=== PATIENT | female | born 1970 | race American Indian/Alaskan Native ===

== ENCOUNTER 2017-01-23 15:24 | Emergency (ER) | payer SELFPAY ==
[2017-01-23 16:04] LABS: Basophils % (Auto) 0.5 % (0.0-1.8); Eosinophils % (Auto) 8.3 % (0.0-4.3); Hematocrit 35.3 % (30.3-42.9); Hemoglobin 10.9 gm/dl (10.1-14.3); Mean Corpuscular HGB Conc 31 % (30-34); Mean Corpuscular Volume 78 fl (79-97); Platelet Count 207 K/mm3 (140-440); Red Blood Count 4.52 M/mm3 (3.65-5.03); Red Cell Distribution Width 18.2 % (13.2-15.2); White Blood Count 8.6 K/mm3 (4.5-11.0)
[2017-01-23 16:10] LABS: Mean Corpuscular Hemoglobin 24 pg (28-32)
[2017-01-23 16:19] LABS: Anion Gap 19 mmol/L; BUN/Creatinine Ratio 7.14; Blood Urea Nitrogen 5 mg/dL (7-17); Calcium 9.1 mg/dL (8.4-10.2); Carbon Dioxide 27 mmol/L (22-30); Chloride 98.8 mmol/L (98-107); Glucose 123 mg/dL (65-100); Potassium 3.7 mmol/L (3.6-5.0); Sodium 141 mmol/L (137-145)
[2017-01-23] MEDS ORDERED: DELTASONE PO ONE (17:30)
[2017-01-23] MEDS ORDERED: TORADOL IM ONE (17:31)
[2017-01-23] MEDS ORDERED: PERCOCET 5/325 PO ONE (17:32)
[2017-01-23] MEDS: PROVENTIL IH ONE ×2 (18:04)
--- NOTE | 2017-01-23 18:40 | Emergency Department Report ---
ED Chest Pain HPI - General Chief Complaint: Chest Pain Stated Complaint: SHARP CHEST PAIN/UPPER LFT/R BELOW SHOULDER Time Seen by Provider: 01/23/17 17:29 Source: patient Mode of arrival: Ambulatory Limitations: No Limitations - History of Present Illness Initial Comments: 46-year-old female with no past medical history presenting to the emergency room complaining of chest pain. Onset started last night. Patient states she' s been coughing for several days. She has been coughing up green phlegm. She has dull ache that is worse when she coughs, and improves when she rests. Pain is located last upper sternal area near her shoulder. Nonradiating. Not accompanied with: Hemoptysis, shortness of breath, wheeze, pain rating towards the back, unilateral lower extremity swelling, abdominal pain, nausea/vomiting/ diarrhea. She is one pack per day smoker. MD Complaint: chest pain -: Gradual, days(s) (1 ) Onset: during rest Pain Location: left chest Pain Radiation: none Severity: moderate Severity scale (0 -10): 3 Quality: aching Improves With: nothing Worsens With: other (cough ) Context: recent illness Other Symptoms: cough. denies: fever, syncope, rash, acid taste in mouth, leg swelling, palpitations, burping Treatments Prior to Arrival: none - Related Data On Oral Contraceptives: No Previous Rx's Medication Instructions Recorded Last Taken Type ALBUTEROL Inhaler [ProAir HFA 2 puff IH QID PRN #1 inhalation 01/23/17 Unknown Rx Inhaler] Aspirin [Aspirin BABY CHEW TAB] 81 mg PO QDAY #30 tab.chew 01/23/17 Unknown Rx Ibuprofen [Motrin 800 MG tab] 800 mg PO Q8HR PRN #30 tablet 01/23/17 Unknown Rx predniSONE [Deltasone] 60 mg PO QDAY #12 tab 01/23/17 Unknown Rx Allergies Allergy/AdvReac Type Severity Reaction Status Date / Time No Known Allergies Allergy Unverified 01/23/17 15:30 Heart Score - HEART Score History: Slightly suspicious EKG: Non-specific Age: 45-65 Risk factors: 1-2 risk factors Troponin: < normal limit HEART Score: 3 - Critical Actions Critical Actions: 0-3 pts:0.9-1.7%risk of adverse cardiac event.Candidate for discharge ED Review of Systems ROS: Stated complaint: SHARP CHEST PAIN/UPPER LFT/R BELOW SHOULDER Other details as noted in HPI Constitutional: denies: chills, fever Eyes: denies: eye pain, eye discharge, vision change ENT: denies: ear pain, throat pain Respiratory: cough. denies: orthopnea, shortness of breath, SOB with exertion, SOB at rest, wheezing Cardiovascular: chest pain. denies: palpitations, dyspnea on exertion, orthopnea, edema, syncope, paroxysmal nocturnal dyspnea Endocrine: no symptoms reported Gastrointestinal: denies: abdominal pain, nausea, diarrhea Genitourinary: denies: urgency, dysuria, discharge Musculoskeletal: denies: back pain, joint swelling, arthralgia Skin: denies: rash, lesions Neurological: denies: headache, weakness, paresthesias Psychiatric: denies: anxiety, depression Hematological/Lymphatic: denies: easy bleeding, easy bruising ED Past Medical Hx - Past Medical History Previous Medical History?: No - Surgical History Past Surgical History?: Yes Additional Surgical History: tubaligation - Social History Smoking Status: Current Every Day Smoker Substance Use Type: Alcohol, Non Opiate Pain - Medications Home Medications: Home Medications Medication Instructions Recorded Confirmed Last Taken Type ALBUTEROL Inhaler [ProAir HFA 2 puff IH QID PRN #1 inhalation 01/23/17 Unknown Rx Inhaler] Aspirin [Aspirin BABY CHEW TAB] 81 mg PO QDAY #30 tab.chew 01/23/17 Unknown Rx Ibuprofen [Motrin 800 MG tab] 800 mg PO Q8HR PRN #30 tablet 01/23/17 Unknown Rx predniSONE [Deltasone] 60 mg PO QDAY #12 tab 01/23/17 Unknown Rx ED Physical Exam - General Limitations: No Limitations General appearance: alert, in no apparent distress - Head Head exam: Present: atraumatic, normocephalic - Eye Eye exam: Present: normal appearance - ENT ENT exam: Present: mucous membranes moist - Neck Neck exam: Present: normal inspection - Respiratory Respiratory exam: Present: normal lung sounds bilaterally, wheezes (expiratory wheezing in all lobes ), chest wall tenderness (left chest wall ). Absent: respiratory distress, rales, rhonchi - Cardiovascular Cardiovascular Exam: Present: regular rate, normal rhythm, other (reproducible chest wall tenderness, left upper chest wall ). Absent: systolic murmur, diastolic murmur, rubs, gallop - GI/Abdominal GI/Abdominal exam: Present: soft, normal bowel sounds. Absent: distended, tenderness, guarding - External exam: Present: other (no evidence of DVT ). Absent: erythema, swelling - Extremities Exam Extremities exam: Present: normal inspection - Back Exam Back exam: Present: normal inspection - Neurological Exam Neurological exam: Present: alert, oriented X3 - Psychiatric Psychiatric exam: Present: normal affect, normal mood - Skin Skin exam: Present: warm, dry, intact, normal color. Absent: rash ED Course Vital Signs 01/23/17 01/23/17 01/23/17 15:31 16:29 17:30 Temperature 98.7 F Pulse Rate 88 77 Pulse Rate [ Bilateral] Pulse Rate [ Throughout] Respiratory 18 20 18 Rate Respiratory Rate [Bilateral ] Respiratory Rate [ Throughout] Blood Pressure 139/83 Blood Pressure 119/72 [Left] O2 Sat by Pulse 100 100 99 Oximetry 01/23/17 01/23/17 18:06 19:30 Temperature Pulse Rate 86 Pulse Rate [ 81 Bilateral] Pulse Rate [ 92 H Throughout] Respiratory 20 20 Rate Respiratory 18 Rate [Bilateral ] Respiratory 18 Rate [ Throughout] Blood Pressure Blood Pressure 143/97 [Left] O2 Sat by Pulse 98 Oximetry - Reevaluation(s) Reevaluation #1: 01/23/17 18:49 Resting comfortably Reevaluation #2: 01/23/17 20:12 Patient agrees she is stable discharge home. OKSANA score - Oksana Score Age > 65: (0) No Aspirin use within the Past 7 Days: (0) No 3 or more CAD Risk Factors: (0) No 2 or more Angina events in past 24 hrs: (0) No Known CAD with more than 50% Stenosis: (0) No Elevated Cardiac Markers: (0) No ST Deviation Greater than 0.5mm: (0) No OKSANA Score: 0 ED Medical Decision Making - Lab Data Result diagrams: 01/23/17 15:44 01/23/17 15:44 - EKG Data EKG shows normal: sinus rhythm, axis (positive), intervals (CO: normal ), QRS complexes Rate: normal (88) - EKG Data When compared to previous EKG there are: previous EKG unavailable Interpretation: nonspecific ST-T wave jannette - Radiology Data Radiology results: image reviewed interpreted by me: no Acute findings - Medical Decision Making 38-year-old female with no past medical history presenting to emergency complaining of cough and chest pain. Patient agrees symptoms have improved and she is stable discharge home. I have low suspicion for: ACS, PE, PNA, Pneumothorax dissection. Patient likely with chest wall pain secondary to cough from bronchitis. She has no complaints and stable discharge home, and has verbalized understanding of return precautions. Critical care attestation.: If time is entered above; I have spent that time in minutes in the direct care of this critically ill patient, excluding procedure time. ED Disposition Clinical Impression: Chest pain, Bronchitis, Cough Disposition: DC-01 TO HOME OR SELFCARE Is pt being admited?: No Does the pt Need Aspirin: No Condition: Stable Instructions: Chest Pain (ED), Chronic Bronchitis (ED) Prescriptions: ALBUTEROL Inhaler [ProAir HFA Inhaler] 2 puff IH QID PRN #1 inhalation PRN Reason: Shortness Of Breath Aspirin [Aspirin BABY CHEW TAB] 81 mg PO QDAY #30 tab.chew Ibuprofen [Motrin 800 MG tab] 800 mg PO Q8HR PRN #30 tablet PRN Reason: Pain , Severe (7-10) predniSONE [Deltasone] 60 mg PO QDAY #12 tab Referrals: PRIMARY CARE, [Primary Care Provider] - 3-5 Days DENISE ANDERSEN MD [Staff Physician] - 3-5 Days Forms: Work/School Release Form(ED)
[2017-01-23 20:19] VITALS: BP 143/97
--- NOTE | 2017-01-24 07:24 | XRay Report ---
Chest 2 views: History: Cough, chest pain. Findings: Normal cardiomediastinal silhouette. Trachea is midline. No consolidation, pneumothorax or pleural effusion. Impression: No acute cardiopulmonary findings.
== END 2017-01-23 20:41 | disposition home or self-care (01) ==
LOC: ED 15:24
DX: R07.9 Chest pain, unspecified (principal); J40 Bronchitis, not specified as acute or chronic; F17.200 Nicotine dependence, unspecified, uncomplicated; Z79.82 Long term (current) use of aspirin
CPT/HCPCS: 36415; 71020; 80048; 84484; 85025; 93005; 93010; 94640; 96372; 99285; J1885; J7512

== ENCOUNTER 2018-09-25 08:37 | Emergency (ER) | payer OTHER ==
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
== END 2018-09-25 11:10 | disposition home or self-care (01) ==
LOC: ED 08:37
DX: S39.012A Strain of muscle, fascia and tendon of lower back, initial encounter (principal); F17.200 Nicotine dependence, unspecified, uncomplicated; Z98.51 Tubal ligation status; Z79.82 Long term (current) use of aspirin; V59.49XA Driver of pick-up truck or van injured in collision with other motor vehicles in traffic accident, initial encounter; Y93.89 Activity, other specified; Y92.488 Other paved roadways as the place of occurrence of the external cause; Y99.8 Other external cause status
CPT/HCPCS: 99282